=== PATIENT | female | born 2005 | race Two or more races ===

== ENCOUNTER 2023-04-19 22:04 | Emergency (ER) | payer BC, SELFPAY ==
[2023-04-19 22:07] VITALS: BP 112/74
--- NOTE | 2023-04-19 22:53 | ED.GENMED ---
History of Present Illness
General
Chief Complaint: Vaginal Bleeding
Source: patient and family (Mother is accompanying)
Exam Limitations: none
Time Seen by Provider: 04/19/23 22:41
Nursing documentation reviewed up to this point in time: agreed with
Travel History
Have you had any contact with someone who has COVID-19?: No
Do you have any symptoms of coronavirus? Fever > 100 degrees, chills, cough, shortness of breath, sore throat, loss of taste or smell, muscle aches, or headache?: No
History of Present Illness
History of Present Illness:
This is a 18-year-old female who has no significant past medical history who complains of heavy vaginal bleeding that began 2 days ago, much worse today passing clots.
Last normal menstrual period was April 03. She has been sexually active and took a dose of Plan B 8 days ago. She began mild vaginal bleeding 2 days ago but bleeding has become much heavier with clots today. She does admit to some mild crampy
pelvic pain earlier today that lasted approximately 1 hour but has since resolved. Patient states she has been changing a soaked tampon every hour this evening.
No history of similar episodes of heavy vaginal bleeding. She denies dizziness nor lightheadedness, no back pain or abdominal pain, no chest pain or shortness of breath. She denies dysuria and urgency and or hematuria. She denies fever nor chills.
She takes no medicines on a daily basis.
She does not believe she is and has had no previous pregnancies.
No history of bleeding disorder, denies easy bruisability, etc.
Past History
Past History
ED Past Medical History: None
ED Past Surgical History: None
Social History
Tobacco: Non-smoker
Drug: None
Personal: Single
Living: with family
Employment: Student
Family History
Family History: Other (Noncontributory)
Phy Exam
Physical Exam
Physical Exam:
GENERAL: 18-year-old female appears her stated age, bright and alert, pleasant, easily conversant and appears in no acute distress. Mother is accompanying.
EYE: pupils equal and reactive. anicteric. Conjunctiva are dark pink.
NECK: Supple, nontender, no meningismus, no significant adenopathy.
ENT: oral mucosa is moist. No rhinorrhea.
CARDIAC: Regular rate and rhythm. no murmur.
LUNGS: Clear breath sounds bilaterally, no acute respiratory distress, no wheezes/rales/rhonchi
ABDOMEN: Soft, nondistended, without focal tenderness, no r/g, no cvat. normoactive BS. No palpable masses.
NEUROLOGICAL: Alert and oriented x3, no focal neuro deficits. Gait is natarajan and steady.
SKIN: Warm and dry, normal color, skin intact. No rash.
MUSCULOSKELETAL: No C/C/E. peripheral pulses are full and equal b/l. No palpable tenderness.
PSYCH: Normal and appropriate interaction.
Course
Orders/Labs/Results
Orders:
Orders
04/19/23 22:43
Test Result ONCE
04/19/23 23:00
Complete Blood Count/With Diff Urgent
HCG, Serum Qualitative Screen Urgent
Abnormal Lab Results
04/19/23
23:00
RBC 4.00 L 10^6/uL
(4.20-5.40)
MCH 31.8 H pg
(27.0-31.0)
MPV 11.9 H fL
(7.4-10.4)
Absolute Lymphs (auto) 3.7 H 10^3/uL
(1.2-3.4)
Absolute Monos (auto) 1.2 H 10^3/uL
(0.1-0.6)
Monocytes % 10.9 H %
(1.7-9.3)
04/19/23 23:00
Vital Signs
Initial and Last Documented VS:
Initial Vital Signs
Temp Pulse Resp BP Pulse Ox
98.7 F 97 16 112/74 100
04/19/23 22:07 04/19/23 22:07 04/19/23 22:07 04/19/23 22:07 04/19/23 22:07
Last Documented Vital Signs
Temp Pulse Resp BP Pulse Ox
98.7 F 97 16 112/74 100
04/19/23 22:07 04/19/23 22:07 04/19/23 22:07 04/19/23 22:07 04/19/23 22:07
MDM/Problems Addressed
Differential Diagnosis Includes:
Concern for heavy breakthrough bleeding related to Plan B. Other consideration is spontaneous AB, ectopic .
Bleeding dyscrasia is less likely, no prior history of bleeding abnormalities and nothing on exam to suspect bleeding dyscrasia i.e. no ecchymosis no petechiae.
Hemodynamically stable without tachycardia nor hypotension. Nothing in history to suggest orthostasis as well.
Nothing on exam to suggest acute blood loss anemia.
Will check CBC, serum hCG and set up for pelvic exam to further assess vaginal bleeding.
Depending on lab results and clinical course, may require pelvic ultrasound.
*Pulse Oximetry
Patient hypoxic: no
*Critical Care Note
Total Time (30-74mins, 75-104mins- exclusive of procedures): Not Applicable
Update Note
Update Note:
04/19/2023 2339 PM
Pelvic exam reveals small amount of dark red blood within vaginal vault but no active bleeding. Cervix is nulliparous.
Labs are unremarkable with normal H&H, normal platelet count, hCG is negative.
I suspect breakthrough bleeding due to exogenous hormonal therapy/Plan B.
Patient is sexually active with 1 partner. She had been on oral contraceptives in the past but not currently and is eager to resume oral contraceptives.
Will plan to resume oral contraceptives with next regular menstrual period.
Discussed importance of safe sex, strict condom use.
Will refer to [facility] [employer] [employer] for recheck.
ED Attending Note
-
Portions of this chart may have been created with voice recognition software.� Occasional wrong word or��sound alike� substitutions may have occurred due to the inherent limitations of voice recognition software.
Discharge Plan
Departure
Patient Disposition: Home (Routine Discharge)
Date of Disposition: 04/19/23
Time of Disposition: 23:43
Patient with high blood pressure during this ER visit?: No
Condition: Good
Discharge Problem:
irregular vaginal bleeding
Instructions: STD Prevention, Bleeding Between Periods
Prescriptions:
New
norgestimate-ethinyl estradiol [[id number]] 0.18/0.215/0.25 mg-25 mcg tablet
1 tab PO DAILY Qty: 84 0RF
Referrals:
Darya Colón DO [Active] - Call in 1-3 days for appt
Murray Acharya DO [Family Provider] -
Interventions
Interventions:
*Risk Screen - Suicide Last Done: 04/19/23 22:07
*Neglect/Abuse Screening Last Done: 04/19/23 22:07
[2023-04-19 23:16] LABS: % Basophils 0.9 % (0-2); % Eosinophils 3.9 % (0-6); % Immature Granulocytes 0.2 % (0-0.5); % Lymphocytes 34.5 % (20.5-51.1); % Monocytes 10.9 % (1.7-9.3); % Neutrophils 49.6 % (42.2-75.2); Absolute Basophils 0.1 10^3/uL (0-0.2); Absolute Eosinophils 0.4 10^3/uL (0-0.7); Absolute Lymphocytes 3.7 10^3/uL (1.2-3.4); Absolute Monocytes 1.2 10^3/uL (0.1-0.6); Absolute Neutrophils 5.4 10^3/uL (1.4-6.5); Hematocrit 37.1 % (37.0-47.0); Hemoglobin 12.7 g/dL (12.0-16.0); Mean Corp Hgb Conc. 34.2 g/dL (33.0-37.0); Mean Corpuscular Hgb 31.8 pg (27.0-31.0); Mean Corpuscular Volume 92.8 fL (81.0-99.0); Mean Platelet Volume 11.9 fL (7.4-10.4); Nucleated Red Blood Cells % 0 %; Platelet Count 257 10^3/uL (130-400); Red Cell Dist. Width 13.1 % (11.5-14.5); White Blood Cell Count 10.8 10^3/uL (4.8-10.8)
[2023-04-19 23:26] LABS: HCG, Serum Qualitative Screen Negative
[2023-04-19 23:46] VITALS: BP 111/67
== END 2023-04-20 00:18 | disposition home or self-care (01) ==
LOC: EMR 22:04
PROVIDERS: EMERGENCY PHYSICIAN Emergency Medicine; FAMILY PHYSICIAN Pediatrics
DX: N93.9 Abnormal uterine and vaginal bleeding, unspecified (principal); R10.2 Pelvic and perineal pain
CPT/HCPCS: 99283; 84703; 85025